=== PATIENT | male | born 1965 | race Two or more races ===

== ENCOUNTER 2022-07-04 02:06 | Emergency (ER) | payer OTHER ==
[~2022-07-04] VITALS: Ht 167.6 cm; Wt 77.1 kg
[2022-07-04] MEDS ORDERED: AMLODIPINE BESY10 MG PO (02:26)
[2022-07-04] MEDS ORDERED: LOSARTAN-HCTZ1 EACH PO (02:26)
[2022-07-04] MEDS ORDERED: PEPCID AC20 MG PO (05:08)
[2022-07-04] MEDS ORDERED: ONDANSETRON ODT4 MG PO (05:08)
== END 2022-07-04 05:23 ==
LOC: ER 02:06
DX: K52.9 Noninfective gastroenteritis and colitis, unspecified (principal); I16.0 Hypertensive urgency; I10 Essential (primary) hypertension; E86.0 Dehydration; Z20.822 Contact with and (suspected) exposure to COVID-19